=== PATIENT | female | born 2000 | race Caucasian/White ===

== ENCOUNTER 2020-11-30 09:28 | Emergency (ER) | payer BC, SELFPAY ==
[2020-11-30] MEDS ORDERED: Ibuprofen 100 MG/5 ML UDCUP ONE (10:17)
== END 2020-11-30 11:05 | disposition home or self-care (01) ==
LOC: NAV ERS 09:28 → EDBD 09:28 → NAV ERS 11:05
DX: J02.9 Acute pharyngitis, unspecified (principal)
CPT/HCPCS: 87081; 87430; 99283